=== PATIENT | male | born 1990 | race Two or more races ===

== ENCOUNTER 2025-02-14 19:50 | Emergency (ER) | payer MEDICAID ==
[~2025-02-14] VITALS: Ht 177.8 cm; Wt 109.4 kg
[2025-02-14 21:29] VITALS: BP 124/78; PULSE 62; RESP 17; TEMP 99.5; O2SAT 98
[2025-02-14] MEDS: TETRACAINE HCL 0.5% OPTH(EYE) SOLN 4ML LEFTEYE ONE (21:41)
[2025-02-14] MEDS: FLUORESCEIN SOD OPTH TEST STRIP LEFTEYE ONE (21:41)
[2025-02-14] MEDS: ERYTHROMY OPTH OINT 5mg/gm 1gm or 3.5gm tube OP ONE (21:49)
[2025-02-14] MEDS ORDERED: ERY05OO OP (22:06)
--- NOTE | 2025-02-14 22:06 | ED.PDOC ---
Eye-HPI HPI Comments Pt c/o left eye pain x1.5 hours [employer]. 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 Noted redness, irritation to left eye, denies vision issues. Rates pain 07/28. Chief Complaint: Eye Problem Time Seen by MD: 20:12 Primary Care Provider: DENIES Reviewed Notes: Nurses Notes, Medications, Allergies Allergies: Coded Allergies: NO KNOWN ALLERGIES (Unverified , 12/07/10) Home Meds Active Scripts Erythromycin (Erythromycin) 5 Mg/Gm Oin, 1 MG OP QID for 7 Days, #3 GRAMS Prov:DAKOTA SALGUERO DIET TECHNICIAN REGISTERED 02/14/25 Information Source: Patient Mode of Arrival: Ambulatory Past Medical History PAST MEDICAL HISTORY: Denies Surgical History: Denies all surgeries Family History Family History: Reviewed,noncontributory to illness, Unknown Social History Smoker: Non-Smoker Alcohol: Denies ETOH Use Drugs: Denies Drug Use Lives In: Home Constitutional: denies: chills, diaphoresis, fatigue, fever, malaise, sweats, weakness, others EENTM: reports: eye pain, eye redness; denies: blurred vision, double vision, ear bleeding, ear discharge, ear drainage, ear pain, ear ringing, hearing loss, mouth pain, mouth swelling, nasal discharge, nose bleeding, nose congestion, nose pain, photophobia, tearing, throat pain, throat swelling, voice changes, others Respiratory: denies: cough, hemoptysis, orthopnea, SOB at rest, shortness of breath, SOB with excertion, stridor, wheezing, others Cardiovascular: denies: chest pain, dizzy spells, diaphoresis, Dyspnea on exertion, edema, irregular heart beat, left arm pain, lightheadedness, palpitations, PND, syncope, others Gastrointestinal: denies: abdomen distended, abdominal pain, blood streaked bowels, constipated, diarrhea, dysphagia, difficulty swallowing, hematemesis, melena, nausea, poor appetite, poor fluid intake, rectal bleeding, rectal pain, vomiting, others Genitourinary: denies: burning, dysuria, flank pain, frequency, hematuria, incontinence, penile discharge, penile sore, pain, testicle pain, testicle swelling, urgency, others Neurological: denies: dizziness, fainting, headache, left sided numbness, left sided weakness, numbness, paresthesia, pre-existing deficit, right sided numbness, right sided weakness, seizure, speech problems, tingling, tremors, weakness, others Musculoskeletal: denies: back pain, gout, joint pain, joint swelling, muscle pain, muscle stiffness, neck pain, others Integumetry: denies: bruises, change in color, change in hair/nails, dryness, laceration, lesions, lumps, rash, wounds, others Allergic/Immunocompromised: denies: Difficulty Healing, Frequent Infections, Hives, Itching, others Hematologic/Lymphatic: denies: anemia, blood clots, easy bleeding, easy bruising, swollen glands, others Psychiatric: denies: anxiety, bipolar disorder, depression, hopeless, panic disorder, schizophrenia, sleepless, suicidal, others Physical Exam General Appearance: No Apparent Distress, Normal HEENT: Pharynx Normal, Other (Left eye scleral hyperemia no noted impaled foreign body) Neck: Full Range of Motion Respiratory: Lungs Clear, No Respiratory Distress, Normal Breath Sounds Cardiovascular: No Murmur, Normal Peripheral Pulses, Regular Rate/Rhythm Breast Exam: Deferred Gastrointestinal: Non Tender, Soft Genitalia: Deferred Pelvic: Deferred Rectal: Deferred Extremities: Normal range of motion Musculoskeletal : Apperance: Normal Neurologic: Alert, No Motor Deficits, Normal Affect, Normal Mood, No Sensory Deficits Cerebellar Function: Normal Reflexes: NOT DONE Skin: Dry, Normal Color, Warm Lymphatic: No Adenopathy Was a procedure done? Was a procedure done?: Yes Sedation Sedation?: No Informed consent obtained: Yes Other Procedure Procedure Wood's lamp exam left eye Indication Possible foreign body Anesthetic Tetracaine 1%, one drop Prep Fluorescein Success No noted ulceration, impaled foreign body, globe rupture, laceration. Noted sclerae abrasion 3 o'clock position Informed consent obtained: Yes Risks, benefits, and alternati: Yes Notes Patient tolerated well EENT DIFF Eye: Corneal Ulceration, Foreign Body-Conjunctiva, Foreign Body-Corneal, Foreign Body-Intraocular, Foreign Body-Lid X-Ray, Labs, Meds, VS Vital Signs Date Time Temp Pulse Resp B/P (MAP) Pulse Ox O2 Delivery O2 Flow Rate FiO2 02/14/25 21:29 99.5 62 17 124/78 (93) 98 99.5 02/14/25 21:29 62 17 98 Room Air 02/14/25 19:58 98.7 69 17 126/92 98 98.7 Current Medications Medications (Trade) Dose Ordered Sig/Rocio Route Start Time Stop Time Status Last Admin Erythromycin 1 applic ONCE ONCE OP 02/14/25 21:45 02/14/25 21:46 DC 02/14/25 21:49 X-Ray, Labs, Meds, VS Comment See procedure note. Patient is started on trial of ophthalmic erythromycin. Advised to take medications as prescribed side effects discussed. Advised to follow up with Ophthalmology in 2-3 days if symptoms persist ER return precautions given patient indicates understanding agrees with discharge plan of care. Time of 1ST Reevaluation: 20:15 Reevaluation 1ST: Unchanged Time of 2ND Reevaluation: 22:04 Reevaluation 2ND: Improved Patient Education/Counseling: Diagnosis, Treatment, Prognosis, Need For Follow Up Family Education/Counseling: No Family Present SEPSIS Sepsis Screen Date sepsis recognized/suspect: Feb 14, 2025 Time Sepsis recognized/suspect: 2001 Recent Procedure: No On Antibiotic Therapy: No Respiratory Rate >20: No Heart Rate >90: No Temp<36 C (96.8 F) or >38.3 C: No SBP <90 or MAP <65 mmHG: No New Acute Mental Status Change: No Is the patient on CPAP, BIPAP,: No Vital Signs Date Time Temp Pulse Resp B/P (MAP) Pulse Ox O2 Delivery O2 Flow Rate FiO2 02/14/25 21:29 99.5 62 17 124/78 (93) 98 99.5 02/14/25 21:29 62 17 98 Room Air 02/14/25 19:58 98.7 69 17 126/92 98 98.7 Medications Medications Dose Ordered Sig/Rocio Route Start Time Stop Time Status Last Admin Dose Admin Erythromycin 1 applic ONCE ONCE OP 02/14/25 21:45 02/14/25 21:46 DC 02/14/25 21:49 Departure 1 Departure Time of Disposition: 22:05 Impression: Primary Impression: Abrasion of sclera of left eye Qualified Codes: S05.8X2A - Other injuries of left eye and orbit, initial encounter Disposition: HOME / SELF CARE / HOMELESS Condition: Stable e-Prescriptions Erythromycin (Erythromycin) 5 Mg/Gm Oin 1 MG OP QID for 7 Days, #3 GRAMS Prov: DAKOTA SALGUERO 02/14/25 Discharged With: Self Critical Care Note Critical Care Time?: No Stability Stability form required: DAKOTA Isbell Feb 14, 2025 22:06
== END 2025-02-14 22:22 | disposition home or self-care (01) ==
LOC: ER 19:50
DX: S05.02XA Injury of conjunctiva and corneal abrasion without foreign body, left eye, initial encounter (principal); X58.XXXA Exposure to other specified factors, initial encounter; Y93.89 Activity, other specified; Y92.89 Other specified places as the place of occurrence of the external cause; Y99.8 Other external cause status